=== PATIENT | male | born 1990 | race Caucasian/White ===

== ENCOUNTER 2018-12-23 18:34 | Inpatient (IN) | payer OTHER ==
[~2018-12-23] VITALS: Ht 185.4 cm; Wt 142.0 kg
--- NOTE | 2018-12-23 18:30 | NUR ---
PATIENT RECEIVED FROM [facility] PER [facility]RETCHER. ALERT AND VERBALLY RESPONSIVE, SKIN WARM AND DRY TO TOUCH. RESPIRATION EVEN AND UNLABORED, WITH O2 IN PLACE VIA N/C. DENIED PAIN AT THIS TIME. BED IN LOWER POSITION, CALL LIGHT AT REACH.
[2018-12-23 18:41] VITALS: BP 140/77
--- NOTE | 2018-12-23 19:15 | NUR ---
PAGED DR MANNING FOR ORDERS. WAITING FOR CALLBACK.
[2018-12-23 20:00] VITALS: BP 155/82
[2018-12-23 20:12] VITALS: BP 155/82
--- NOTE | 2018-12-23 20:17 | NUR ---
DR. MANNING PAGED FOR THE SECOND TIME. WAITING FOR REPLY.
[2018-12-23 20:36] VITALS: BP 155/82
--- NOTE | 2018-12-23 21:23 | NUR ---
CALLBACK RECEIVED FROM DR. MANNING. NEW ORDERS RECEIVED.
[2018-12-23] MEDS ORDERED: ACETAMINOPHEN 325 MG TAB PO PRN (21:30)
[2018-12-23] MEDS ORDERED: SODIUM CHLORIDE 0.9% 250ML 250 ML ONE (22:02)
[2018-12-23] MEDS: CEFTRIAXONE SOD 2 GM/NS 100 ML 100 ML IV SCH (23:46)
[2018-12-24] VITALS (8 sets, daily range): BP systolic 132–145; BP diastolic 74–85
[2018-12-24] MEDS: AZITHROMYCIN 250MG/NS 100 ML 100 ML IV SCH (02:13)
[2018-12-24 06:29] LABS: BASOPHILS % 0.3 % (0.0-1.0); HEMATOCRIT 43.3 % (38.2-49.6); HEMOGLOBIN 14.7 g/dL (14.0-18.0); LYMPHOCYTES # (AUTO) 0.7 (1.0-3.2); LYMPHOCYTES % 10.2 % (18.0-39.1); MEAN CORPUSCULAR HEMOGLOBIN 29.3 pg (28-32); MEAN CORPUSCULAR HGB CONC 33.9 g/dL (31-35); MEAN CORPUSCULAR VOLUME 86.4 fL (81-99); MONOCYTES # (AUTO) 0.7 (0.2-0.8); MONOCYTES % 9.5 % (4.4-11.3); NEUTROPHILS # (AUTO) 5.8 (2.1-6.9); NEUTROPHILS % 79.7 % (38.7-80.0); PLATELET COUNT 286 x10e3/uL (140-360); RED BLOOD COUNT 5.01 x10e6/uL (4.3-5.7); RED CELL DISTRIBUTION WIDTH 11.6 % (11.7-14.4)
--- NOTE | 2018-12-24 07:00 | NUR ---
RECEIVED REPORT FROM NURSE. PT IS LYING SUPINE IN BED, NO S/S OF DISTRESS. PT IS RECEIVING 4L O2 VIA NC.
[2018-12-24 07:11] LABS: BLOOD UREA NITROGEN 14 mg/dL (7-26); BUN/CREATININE RATIO 18 (6-25); CALCIUM 9.7 mg/dL (8.4-10.2); CARBON DIOXIDE 24 mmol/L (22-29); CHLORIDE 106 mmol/L (98-107); CREATININE, SERUM 0.77 mg/dL (0.72-1.25); EST GLOMERULAR FILTRATION RATE > 60 ML/MIN (60-); GLUCOSE 133 mg/dL (74-118); SODIUM 138 mmol/L (136-145)
--- NOTE | 2018-12-24 20:26 | NUR ---
RECEIVED PT IN BED .NO ACUTE DISTRESS NOTED ,PT IS ON2L 02 N/C .TELE #16 SHOWS SR .CALL LIGHT WITH IN REACH .CONTINUE TO MONITOR .
--- NOTE | 2018-12-24 23:11 | History and Physical ---
HISTORY: A 28-year-old male, no past medical history, came to the Emergency Room complaining of cough, cough, phlegm, fever, and shortness of breath. He was found to have a left lower lobe pneumonia, started on IV antibiotics, admitted to the hospital. REVIEW OF SYSTEMS: CARDIOVASCULAR: No chest pain or palpitation. RESPIRATORY: He has shortness of breath, cough, and phlegm. GASTROINTESTINAL: No nausea, vomiting. No diarrhea. GENITOURINARY: No frequency. No dysuria. ALLERGIES: HE IS ALLERGIC TO AMOXICILLIN, CLAVULANIC ACID. PAST MEDICAL HISTORY: Negative for any significant medical condition. SOCIAL HISTORY: He does not smoke. He does not drink. PHYSICAL EXAMINATION: VITAL SIGNS: Blood pressure 134/81, temperature 96.9, heart rate 75 per minute, respiratory rate is 20 per minute, and oxygen saturation 96%. HEART: Showed regular rhythm. Normal S1, S2 sound. LUNGS: Clear bilaterally. ABDOMEN: Soft. EXTREMITIES: Show no evidence of cyanosis or hematoma. LABORATORY DATA: On the BMP, sodium 138, potassium 4.0, chloride 106, CO2 of 24, BUN 14, creatinine 0.77, glucose 133. On the CBC, white blood count 7.29, hemoglobin 14.7, hematocrit 43.3, and platelet count 286,000. FINAL IMPRESSION: 1. Left lower lobe pneumonia. 2. Obesity. PLAN OF TREATMENT: Continue with Zithromax 500 mg IV once a day, ceftriaxone 2 g IV daily, Tylenol 650 mg q.6 hours as needed. Blood culture has been ordered. We are going to follow up on blood culture, seen on the history and physical. Discussed with the family. MD NILESH Crenshaw/CRYSTAL /[id number]
--- NOTE | 2018-12-24 23:11 | History and Physical ---
ADDENDUM: Pneumonia was on the right middle lung. MD NILESH Crenshaw/CRYSTAL /[id number]
[2018-12-25] VITALS: BP 132/73
[2018-12-25] MEDS: CEFTRIAXONE SOD 2 GM/NS 100 ML 100 ML IV SCH
[2018-12-25] MEDS: AZITHROMYCIN 250MG/NS 100 ML 100 ML IV SCH (03:00)
[2018-12-25 04:00] VITALS: BP 130/73
--- NOTE | 2018-12-25 06:42 | NUR ---
RT MADE THE PT TO WALK WITH OUT O2 .PT HAS 02 SAT 95% WITH OUT O2 .PT IS ON RM .DENIES PAIN CONTINUE TO MONITOR
--- NOTE | 2018-12-25 06:50 | NUR ---
RECEIVED AM REPORT FROM NURSE. PT IS AWAKE IN BED AOx3, NO S/S OF DISTRESS. CALL LIGHT IS WITHIN REACH, BED IN LOW POSITION, SIDE RAILS UP. NO COMPLAINTS FROM THE PT AT THIS TIME.
--- NOTE | 2018-12-25 07:04 | NUR ---
BEDSIDE REPORT GIVEN TO THE ONCOMING NURSE.
[2018-12-25 07:42] VITALS: BP 124/60
[2018-12-25 09:46] VITALS: BP 124/60
[2018-12-25 11:40] VITALS: BP 120/72
[2018-12-25] MEDS ORDERED: LEVAQUIN500 MG PO (15:17)
[2018-12-25 15:44] VITALS: BP 128/76
--- NOTE | 2018-12-26 07:43 | Discharge Summary ---
HOSPITAL COURSE: A 28-year-old male with no past medical history, came here with pneumonia. He was started on Rocephin and azithromycin. Blood cultures are negative. The patient has no fever, feeling better. Oxygen saturation on room air has been the patient going home today. He is going to be on Levaquin 500 mg daily for 10 days. He is to post to go back to work on January 05. PHYSICAL EXAMINATION: VITAL SIGNS: Blood pressure 120/72, temperature 97.9, heart rate 74 per minute, respiratory rate 20 per minute, and oxygen saturation 96%. HEART: Showed regular rhythm. Normal S1, S2 sound. LUNGS: Clear bilaterally. ABDOMEN: Soft. LABORATORY DATA: On the BMP; sodium 138, potassium 4.0, chloride 106, CO2 of 24, BUN 14, creatinine 0.77, and glucose 133. On the CBC; white blood count 7.29, hemoglobin 14.7, hematocrit 43.3, and platelet count 286,000. Chest x-ray shows right middle lobe pneumonia. Blood cultures are negative. FINAL IMPRESSION: 1. Right middle lobe pneumonia. 2. Obesity. PLAN OF TREATMENT: Continue Levaquin 500 mg daily for 10 days. Follow his primary care physician in a week. The patient is to return to work on January 05 should he feel better. MD NILESH Crenshaw/CRYSTAL /[id number]
== END 2018-12-25 16:31 | disposition home or self-care (01) | DRG 194 ==
LOC: MED/SURG3 18:34
PROVIDERS: ADMIT Internal Medicine; ATTEND Internal Medicine
DX: J18.1 Lobar pneumonia, unspecified organism (principal); Z68.41 Body mass index [BMI] 40.0-44.9, adult; E66.9 Obesity, unspecified
CPT/HCPCS: 36415; 80048; 85025; 87040; J0696; J7050

== ENCOUNTER 2021-01-02 14:43 | Emergency (ER) | payer OTHER ==
[~2021-01-02] VITALS: Ht 185.4 cm; Wt 142.0 kg
[~2021-01-02 14:43] MED LIST: LEVAQUIN500 MG PO
[2021-01-02] MEDS ORDERED: KETOROLAC TROMETHAMINE 30 MG/ML VIAL IV STA (15:15)
[2021-01-02] MEDS ORDERED: SODIUM CHLORIDE 0.9% 1000ML 1,000 ML IV SCH (15:15)
[2021-01-02] MEDS ORDERED: ACETAMINOPHEN 325 MG TAB PO ONE (15:15)
[2021-01-02 16:14] LABS: BASOPHILS % 0.4 % (0.0-1.0); HEMATOCRIT 47.8 % (38.2-49.6); HEMOGLOBIN 16.3 g/dL (14.0-18.0); LYMPHOCYTES # (AUTO) 0.9 (1.0-3.2); LYMPHOCYTES % 34.8 % (18.0-39.1); MEAN CORPUSCULAR HEMOGLOBIN 29.7 pg (28-32); MEAN CORPUSCULAR HGB CONC 34.1 g/dL (31-35); MEAN CORPUSCULAR VOLUME 87.1 fL (81-99); MONOCYTES # (AUTO) 0.4 (0.2-0.8); MONOCYTES % 17.2 % (4.4-11.3); NEUTROPHILS # (AUTO) 1.2 (2.1-6.9); NEUTROPHILS % 47.6 % (38.7-80.0); PLATELET COUNT 186 x10e3/uL (140-360); RED BLOOD COUNT 5.49 x10e6/uL (4.3-5.7); RED CELL DISTRIBUTION WIDTH 11.9 % (11.7-14.4)
[2021-01-02 16:30] LABS: ALANINE AMINOTRANSFERASE 127 IU/L (0-55); ALBUMIN 4.2 g/dL (3.5-5.0); ALBUMIN/GLOBULIN RATIO 1.4 (0.8-2.0); ALKALINE PHOSPHATASE 60 IU/L (40-150); ANION GAP 15.9 mmol/L (8-16); BLOOD UREA NITROGEN 11 mg/dL (7-26); BUN/CREATININE RATIO 11 (6-25); CALCIUM 8.4 mg/dL (8.4-10.2); CARBON DIOXIDE 24 mmol/L (22-29); CHLORIDE 104 mmol/L (98-107); CREATININE, SERUM 1.04 mg/dL (0.72-1.25); EST GLOMERULAR FILTRATION RATE > 60 ML/MIN (60-); GLUCOSE 109 mg/dL (74-118); POTASSIUM 3.9 mmol/L (3.5-5.1); SODIUM 140 mmol/L (136-145)
[2021-01-02 17:51] VITALS: BP 136/74
== END 2021-01-02 17:51 | disposition home or self-care (01) ==
LOC: ER 15:12
DX: R50.9 Fever, unspecified (principal); J06.9 Acute upper respiratory infection, unspecified; R42 Dizziness and giddiness; R53.83 Other fatigue
CPT/HCPCS: 36415; 71045; 80053; 84484; 85025; 85379; 93005; 99284; J1885; J7030

== ENCOUNTER → 2022-10-25 | Outpatient (CLI) | payer OTHER | LOC: RAD 14:00 | PROVIDERS: ATTEND Family Medicine | DX: R00.0 Tachycardia, unspecified (principal); R06.02 Shortness of breath | CPT/HCPCS: 71250; 93306 ==